=== PATIENT | female | born 2000 | race African-American/Black ===

== ENCOUNTER 2025-01-21 03:20 | Emergency (ER) | payer MEDICAID ==
[~2025-01-21] VITALS: Ht 157.5 cm; Wt 71.0 kg
[2025-01-21 03:26] VITALS: PULSE 85; RESP 16; O2SAT 99
[2025-01-21 03:32] VITALS: BP 127/73; TEMP 36.7; O2SAT 100
[2025-01-21 04:29] LABS: BASOPHILS % 0.5 % (0.0-2.0); EOSINOPHILS % 1.1 % (0.0-5.0); HEMATOCRIT. 36.8 % (36.0-48.0); HEMOGLOBIN. 12.3 g/dL (12.0-16.0); LYMPHOCYTES % 18.2 % (20.0-50.0); MEAN CORPUSCULAR HEMOGLOBIN 30.2 pg (28.0-32.0); MEAN CORPUSCULAR HGB CONC 33.6 g/dL (31.0-37.0); MEAN CORPUSCULAR VOLUME 90.1 fL (81.0-99.0); MEAN PLATELET VOLUME 7.7 fl (7.4-10.4); MONOCYTES % 7.5 % (2.0-8.0); NEUTROPHILS % 72.7 % (40.0-76.0); PLATELET 275 x1000/uL (130-400); RED BLOOD CELL COUNT 4.08 mill/uL (4.2-5.4); RED CELL DISTRIBUTION WIDTH 13.9 % (11.6-14.6); WHITE BLOOD COUNT 13.4 x1000/uL (4.5-11.0)
[2025-01-21 04:31] LABS: CHLORIDE 105 mEq/L (98-107); POTASSIUM 3.9 mEq/L (3.5-5.1); SODIUM 140 mEq/L (136-145)
[2025-01-21 04:32] LABS: CALCIUM 9.1 mg/dL (8.7-10.4); CARBON DIOXIDE 28 mEq/L (21-32)
[2025-01-21 04:37] LABS: GLUCOSE 103 mg/dL (70-105); UREA NITROGEN BLOOD 11 mg/dL (9-23)
[2025-01-21 06:07] VITALS: TEMP 98
[2025-01-21] MEDS: ACETAMINOPHEN 500MG TABLET PO ONE (06:07)
[2025-01-21] MEDS: ONDANSETRON HCL 4MG TABLET PO ONE (06:07)
[2025-01-21 06:31] LABS: HCG SCREEN NEGATIVE
== END 2025-01-21 09:09 | disposition left against medical advice (07) ==
LOC: ER 03:20
DX: R10.9 Unspecified abdominal pain (principal); R19.7 Diarrhea, unspecified; K50.90 Crohn's disease, unspecified, without complications; R11.2 Nausea with vomiting, unspecified
CPT/HCPCS: 99283; 80048; 84703; 85025; 36415; Q0162